=== PATIENT | male | born 1940 | race Caucasian/White ===

== ENCOUNTER → 2020-03-14 08:48 | Outpatient (BNVA) | payer MEDICARE, OTHER, SELFPAY | PROVIDERS: PCP Family Medicine; Referring Provider Family Medicine; Visit Provider Urology | DX: R32 Unspecified urinary incontinence (principal); C61 Malignant neoplasm of prostate | CPT/HCPCS: 51701; 51702; 99212 ==

== ENCOUNTER → 2020-04-12 10:42 | Outpatient (BNVA) | payer MEDICARE, OTHER, SELFPAY | PROVIDERS: PCP Family Medicine; Visit Provider Urology | DX: N31.9 Neuromuscular dysfunction of bladder, unspecified (principal); C61 Malignant neoplasm of prostate; N39.0 Urinary tract infection, site not specified; Z46.6 Encounter for fitting and adjustment of urinary device; Z92.3 Personal history of irradiation | CPT/HCPCS: 51701; 51702; 99212 ==

== ENCOUNTER → 2020-04-19 13:24 | Outpatient (BNVA) | payer MEDICARE, OTHER, SELFPAY | PROVIDERS: PCP Family Medicine; Visit Provider Urology | DX: N31.9 Neuromuscular dysfunction of bladder, unspecified (principal) | CPT/HCPCS: 51701; 51702; 99212 ==

== ENCOUNTER → 2020-05-17 13:17 | Outpatient (BNVA) | payer MEDICARE, OTHER, SELFPAY | PROVIDERS: PCP Family Medicine; Visit Provider Urology | DX: N31.9 Neuromuscular dysfunction of bladder, unspecified (principal); N39.0 Urinary tract infection, site not specified | CPT/HCPCS: 51701; 51702; 99212 ==

== ENCOUNTER → 2020-07-12 14:02 | Outpatient (BNVA) | payer MEDICARE, OTHER, SELFPAY | PROVIDERS: PCP Family Medicine; Visit Provider Urology | DX: N31.9 Neuromuscular dysfunction of bladder, unspecified (principal); C61 Malignant neoplasm of prostate | CPT/HCPCS: 51701; 51702; 99212 ==

== ENCOUNTER → 2020-08-11 15:25 | Outpatient (BNVA) | payer MEDICARE, OTHER, SELFPAY | PROVIDERS: Visit Provider Urology | DX: N31.9 Neuromuscular dysfunction of bladder, unspecified (principal); C61 Malignant neoplasm of prostate | CPT/HCPCS: 51701; 51702; 99212 ==

== ENCOUNTER → 2020-09-07 13:19 | Outpatient (BNVA) | payer OTHER, SELFPAY | PROVIDERS: Visit Provider Urology | DX: N39.0 Urinary tract infection, site not specified (principal); N31.9 Neuromuscular dysfunction of bladder, unspecified; N30.40 Irradiation cystitis without hematuria; C61 Malignant neoplasm of prostate | CPT/HCPCS: 51701; 51702; 51705; 99212 ==

== ENCOUNTER 2020-10-18 07:52 | Outpatient (REF) | payer MEDICARE, OTHER, SELFPAY ==
--- NOTE | ~2020-10-18 | XR_ITS ---
EXAMINATION: XR KNEE, RIGHT CLINICAL INFORMATION: Pain COMPARISON: May 26, 2013 TECHNIQUE: AP standing view of both knees as well as sunrise and lateral views of the right. FINDINGS: AP standing views of both knees demonstrate loss of the medial joint space compartment of the right knee and moderate narrowing of the medial joint space compartment of the left knee. Prominent vascular calcifications are present. Stanford and lateral views of the right knee do not demonstrate any evidence of acute fracture or dislocation. There is mild spurring at the patellofemoral joint. No right knee effusion. XR/XR knee RT 3V IMPRESSION: Severe degenerative change medial joint space compartment of the right knee.
== END 2020-10-18 07:53 | disposition home or self-care (01) ==
LOC: HO.HOSX 07:52
PROVIDERS: Visit Provider Orthopaedic Surgery
DX: M17.11 Unilateral primary osteoarthritis, right knee (principal)
CPT/HCPCS: 73562; 99202

== ENCOUNTER → 2020-11-02 10:05 | Outpatient (BNVA) | payer MEDICARE, OTHER, SELFPAY | PROVIDERS: PCP Family Medicine; Visit Provider Urology | DX: Z46.6 Encounter for fitting and adjustment of urinary device (principal); C61 Malignant neoplasm of prostate; N31.9 Neuromuscular dysfunction of bladder, unspecified | CPT/HCPCS: 51701; 99212 ==

== ENCOUNTER → 2020-12-05 10:00 | Outpatient (BNVA) | payer MEDICARE, OTHER, SELFPAY | PROVIDERS: PCP Family Medicine; Visit Provider Urology | DX: N30.40 Irradiation cystitis without hematuria (principal); N31.9 Neuromuscular dysfunction of bladder, unspecified; R33.8 Other retention of urine; C61 Malignant neoplasm of prostate; Z46.6 Encounter for fitting and adjustment of urinary device; Z95.2 Presence of prosthetic heart valve | CPT/HCPCS: 51701; 51702; 51705; 99212 ==

== ENCOUNTER → 2020-12-07 12:38 | Outpatient (BNVA) | payer MEDICARE, OTHER, SELFPAY | PROVIDERS: PCP Family Medicine; Visit Provider Orthopaedic Surgery | DX: M17.11 Unilateral primary osteoarthritis, right knee (principal) | CPT/HCPCS: 99212 ==

== ENCOUNTER → 2020-12-11 | Day surgery (SDC) | payer MEDICARE, OTHER, SELFPAY ==
--- NOTE | 2020-12-11 11:39 | HO.ANESPROP2 ---
HPI - Anesthesia Eval Consult details Narrative: Surgery postponed by ortho d/t fall at home/leg injury/deconditioning 80yo M for Right Knee Replacement Total Cardiac cleared PCP cleared - pending afib and TAVR (11/2019) - Watchman device PMFSH Active Problems Active Problems: All Active Problems (Updated 12/08/20 @ 11:07 by Karlee Jay RN) Prostate cancer (Acute) Urinary incontinence (Acute) Neurogenic urinary bladder disorder (Acute) Chronic UTI (urinary tract infection) (Acute) Radiation cystitis (Acute) Primary osteoarthritis of right knee (Acute) Past Medical History Medical History A-fib Aortic valve disorder Bypass graft stenosis CKD (chronic kidney disease) Diabetes Diastolic CHF, chronic Dyspnea Heart catheter in place Gout Hard of hearing HTN (hypertension) Hypothyroidism Neurogenic bladder Presence of Watchman left atrial appendage closure device Prostate cancer Family History Family History Father No problems noted. Mother No problems noted. Family history of problems with anesthesia: No Surgical History Surgical History Aortic valve replaced History of aortic valve replacement with bioprosthetic valve History of right-sided carotid endarterectomy Hx of colonoscopy History of Problems with Anesthesia: No Social History Social History (Updated 12/21/20 @ 10:33 by Godwin Eddy) Are you a primary ocular care technologist to a significant other at home: No Do you presently have visiting nurse or other home services: Yes ([facility]) Patient Tobacco Use Status: Former Tobacco user Quit Date: 50 yrs ago Tobacco use type: Cigarette Second Hand Smoke Exposure: No Current occupational status: retired Current occupation: rt handed Narrative Narrative: No recent illness No CP/SOB at rest. Minimal activity d/t pain. Meds Allergies Allergy/AdvReac Type Severity Reaction Status Date / Time allopurinol Allergy kidney Verified 12/21/20 10:32 failure Home Medications Medication Instructions Recorded Confirmed Last Taken Type aspirin 81 mg tablet,delayed 81 mg PO BEDTIME 12/25/19 12/08/20 Unknown History release (Adult Aspirin Regimen) bicalutamide 50 mg tablet (Casodex) 50 mg PO DAILY 12/25/19 12/08/20 Unknown History glipizide 5 mg tablet 10 mg PO BID 12/25/19 12/08/20 Unknown History furosemide 20 mg tablet 10 mg PO QAM 10/18/20 12/08/20 Unknown History lovastatin 40 mg tablet 40 mg PO DAILY 10/18/20 12/08/20 Unknown History metformin 750 mg tablet,extended 750 mg PO DAILY 10/18/20 12/08/20 Unknown History release 24 hr metoprolol tartrate 25 mg tablet 25 mg PO BID 10/18/20 12/08/20 Unknown History nifedipine 60 mg tablet,extended 60 mg PO DAILY 10/18/20 12/08/20 Unknown History release pantoprazole 20 mg tablet,delayed 20 mg PO DAILY 10/18/20 12/08/20 Unknown History release amiodarone 200 mg tablet 200 mg PO DAILY 12/08/20 12/08/20 Unknown History colchicine 0.5 mg tablet 0.5 mg PO Q2D 12/08/20 12/08/20 Unknown History levothyroxine 125 mcg tablet 125 mcg PO DAILY 12/20/20 12/20/20 Unknown History Exam Exam Date and Time: December 11, 2020 1139 Height,Weight and Vital Signs: Vital Signs Pulse Rate 68 12/11/20 11:56 Respiratory Rate 12/11/20 11:56 Blood Pressure 120/61 12/11/20 11:56 Pulse Oximetry 98 12/11/20 11:56 Pulse Rate 68 12/11/20 11:56 Respiratory Rate 20 12/11/20 11:56 Blood Pressure 120/61 12/11/20 11:56 Pulse Oximetry 98 12/11/20 11:56 Narrative Narrative: EKG 11/2020 ECHO 07/2020 1. Normal LV function 2. LV systolic funtion is normal with EF 60-65% 3.Transcatheter aortic valve. Mean gradient across the valve is 7mmHg 4. 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 Moderate Mitral Stenosis. Mean gradient 9mmHg 6. Accurate pulmonary pressures cannot be determined d/t absence of TR jet 7. No change compared to findings. Airway Mallampati Class: II TM Dist: >3cm Neck ROM: Full Loose/Missing/Broken Teeth: Yes (Pulled molars) Heart: +M Lungs: CTAB Assessment and Plan Final Anesthetic Review Family History of Problems with Anesthesia: No History of Problems with Anesthesia: No
[2020-12-11 11:45] VITALS: BMI 26.2
[2020-12-11 11:56] VITALS: BP 120/61; PULSE 68; RESP 20; O2SAT 98
--- NOTE | 2020-12-11 12:35 | ECG_ITS ---
Test Reason : preop Blood Pressure : / mmHG Vent. Rate : 065 BPM Atrial Rate : 065 BPM P-R Int : 302 ms QRS Dur : 090 ms QT Int : 446 ms P-R-T Axes : 000 195 103 degrees QTc Int : 463 ms Sinus rhythm with 1st degree A-V block Right superior axis deviation Abnormal ECG When compared with ECG of 31-OCT-2008 16:15, QRS axis Shifted left Referred By: Michelle Persaud Electronically Signed By:AYO LYNN
[2020-12-11 14:11] LABS: Hemoglobin 14.9 g/dl (14.0-18.0); Mean Corpuscular HGB Conc 32.4 g/dl (31.0-36.0); Mean Corpuscular Volume 98.7 fL (80-98); Mean Platelet Volume 11.6 fL (9.4-12.4); Platelet Count 175 X10*3/uL (160-400); Red Blood Count 4.66 X10*6/uL (4.60-5.80); Red Cell Distribution Width 14.2 % (11.0-16.0)
[2020-12-11 14:25] LABS: Anion Gap 16 (12-20); Blood Urea Nitrogen 34 mg/dL (9-16); Carbon Dioxide 28 mmol/L (22-29); Chloride 99 mmol/L (96-108); Creatinine Clr Calc Pharmacy 37.2; Estimated Glomerular Filt Rate 41; Glucose Random 148 mg/dL (60-115); Potassium 4.5 mmol/L (3.3-5.1); Sodium 138 mmol/L (135-145)
[2020-12-11 15:49] LABS: MRSA Nasal PCR NEGATIVE (Negative); SA Nasal PCR NEGATIVE (Negative)
== END ==
PROVIDERS: Nurse Practitioner; Physician Assistant; PCP Family Medicine; Visit Provider Orthopaedic Surgery
DX: M17.11 Unilateral primary osteoarthritis, right knee (principal); Z53.09 Procedure and treatment not carried out because of other contraindication; Z91.81 History of falling
CPT/HCPCS: 36415; 80048; 85027; 86850; 86900; 86901; 87640; 87641; 93005

== ENCOUNTER → 2020-12-21 10:14 | Outpatient (BNVA) | payer MEDICARE, OTHER, SELFPAY | PROVIDERS: Visit Provider Physician Assistant | DX: M17.11 Unilateral primary osteoarthritis, right knee (principal) | CPT/HCPCS: 99212 ==

== ENCOUNTER → 2021-01-05 10:34 | Outpatient (BNVA) | payer MEDICARE, OTHER, SELFPAY | PROVIDERS: Visit Provider Urology | DX: N31.9 Neuromuscular dysfunction of bladder, unspecified (principal) | CPT/HCPCS: 51705 ==

== ENCOUNTER → 2021-02-02 13:03 | Outpatient (BNVA) | payer MEDICARE, OTHER, SELFPAY | PROVIDERS: Visit Provider Urology | DX: N31.9 Neuromuscular dysfunction of bladder, unspecified (principal) | CPT/HCPCS: 51705 ==

== ENCOUNTER → 2021-03-02 10:12 | Outpatient (BNVA) | payer MEDICARE, OTHER, SELFPAY | PROVIDERS: PCP Family Medicine; Visit Provider Urology | DX: N31.9 Neuromuscular dysfunction of bladder, unspecified (principal) | CPT/HCPCS: 51705 ==